=== PATIENT | female | born 1955 | race Caucasian/White ===

== ENCOUNTER 2022-02-04 07:39 | Outpatient (REF) | payer MEDICARE, SELFPAY ==
[2022-02-04 07:58] LABS: MANUAL DIFF FLAG NO
[2022-02-04 08:54] LABS: Basophils Percent Auto 0.6 % (0-2); Eosinophils Absolute Auto 0.2 X10*3/uL (0.0-0.4); Eosinophils Percent Auto 3.5 % (0-4); Hematocrit 45.8 % (37.0-47.0); Hemoglobin 14.9 g/dl (12.0-16.0); Imm Gran Abs Auto 0.02 X10*3/uL (0.00-0.03); Imm Gran Pct Auto 0.4 % (0.0-0.4); Lymphocytes Percent Auto 19.7 % (20-40); Mean Corpuscular HGB Conc 32.5 g/dl (31.0-35.0); Mean Corpuscular Hemoglobin 28.5 pg (27.0-33.0); Mean Corpuscular Volume 87.7 fL (80.0-98.0); Mean Platelet Volume 9.2 fL (9.4-12.3); Monocytes Absolute Auto 0.7 X10*3/uL (0.1-1.2); Monocytes Percent Auto 13.5 % (2-11); Neutrophils Absolute Auto 3.2 x10*3/uL (2.0-8.3); Neutrophils Percent Auto 62.3 % (45-73); Platelet Count 295 X10*3/uL (160-400); Red Blood Count 5.22 X10*6/uL (4.20-5.50); Red Cell Distribution Width 12.8 % (11.0-16.0); White Blood Count 5.2 X10*3/uL (4.8-10.8)
[2022-02-04 09:23] LABS: Alanine Aminotransferase 23 U/L (0-31); Albumin Level 4.2 g/dL (3.5-5.0); Alkaline Phosphatase 45 U/L (39-117); Anion Gap 15 (12-20); Aspartate Amino Transferase 30 U/L (5-31); Bilirubin Total 0.6 mg/dL (0.0-1.0); Blood Urea Nitrogen 22 mg/dL (9-16); Calcium 9.4 mg/dL (8.4-10.2); Carbon Dioxide 26 mmol/L (22-29); Chloride 103 mmol/L (96-108); Cholesterol 179 mg/dL; Estimated Glomerular Filt Rate > 60; Glucose Random 90 mg/dL (60-115); HDL Cholesterol 34 mg/dL; LDL Cholesterol Calculated 120 mg/dl; Potassium 4.2 mmol/L (3.3-5.1); Sodium 140 mmol/L (135-145); Total Protein 6.4 g/dL (6.5-8.0); Triglycerides 129 mg/dL
[2022-02-04 10:17] LABS: Free T4 (Free Thyroxine) 1.07 ng/dL (0.71-1.85); Thyroid Stimulating Hormone 2.27 uIU/mL (0.32-4.0); Vitamin D 25-OH Total 37.2 ng/mL (>30)
== END 2022-02-04 07:40 | disposition home or self-care (01) ==
LOC: HO.LAB 07:39
PROVIDERS: PCP Internal Medicine; Visit Provider Internal Medicine
DX: E03.9 Hypothyroidism, unspecified (principal); E78.00 Pure hypercholesterolemia, unspecified; M25.562 Pain in left knee
CPT/HCPCS: 36415; 80053; 80061; 82306; 84439; 84443; 85025

== ENCOUNTER → 2022-03-08 07:51 | Outpatient (REF) | payer MEDICARE, SELFPAY ==
--- NOTE | 2022-03-08 08:10 | CA_ITS ---
Acquisition Time: 2022-03-08 08:26:29 Total Exercise Time: 00:05:31 Test Indications: CP Medications: SEE CHART Protocol: SRINIVASAN Max HR: 153 BPM 100% of Pred: 152 BPM Max BP: 198/050 mmHG Max Work Load: 7.0 METS PT EXERCISED ON STD SRINIVASAN PROTOCOL FOR 530 INTO STAGE 2. MAX HR 153-100%MAX. NO C/O CP OR SOB. NO EKG CHANGES. NO ARRHYTHMIAS. CLINICALLY AND ELEC NEG. Referred By: Roberto Hughes Overread By: WAI HUGHES MD
== END ==
LOC: HO.CARD 07:51
PROVIDERS: PCP Internal Medicine; Visit Provider Internal Medicine
DX: R07.89 Other chest pain (principal); K21.9 Gastro-esophageal reflux disease without esophagitis
CPT/HCPCS: 93017

== ENCOUNTER 2022-06-28 16:12 | Outpatient (REF) | payer MEDICARE, SELFPAY ==
--- NOTE | ~2022-06-28 | XR_ITS ---
EXAMINATION: XR CHEST CLINICAL INFORMATION: Chest wall pain COMPARISON: None available. TECHNIQUE: 2 views of the chest were obtained. FINDINGS: No pneumothorax, pleural reaction, airspace opacity, or effusion. No hyperinflation. Heart size normal. The hilar and mediastinal contours are unremarkable. There are mild degenerative changes thoracic spine with gentle levocurvature lower thoracic region. XR/XR chest 2V IMPRESSION: -Lungs clear. No pneumothorax, infiltrate, or effusion.
[2022-06-28 16:36] LABS: MANUAL DIFF FLAG NO
[2022-06-28 17:07] LABS: Basophils Absolute Auto 0.1 X10*3/uL (0.0-0.2); Basophils Percent Auto 1.4 % (0-2); Eosinophils Absolute Auto 0.2 X10*3/uL (0.0-0.4); Hematocrit 45.8 % (37.0-47.0); Hemoglobin 14.9 g/dl (12.0-16.0); Imm Gran Abs Auto 0.02 X10*3/uL (0.00-0.03); Imm Gran Pct Auto 0.3 % (0.0-0.4); Mean Corpuscular HGB Conc 32.5 g/dl (31.0-35.0); Mean Corpuscular Hemoglobin 28.8 pg (27.0-33.0); Mean Corpuscular Volume 88.4 fL (80.0-98.0); Mean Platelet Volume 9.1 fL (9.4-12.3); Monocytes Absolute Auto 0.6 X10*3/uL (0.1-1.2); Monocytes Percent Auto 7.7 % (2-11); Neutrophils Absolute Auto 4.3 x10*3/uL (2.0-8.3); Neutrophils Percent Auto 59.6 % (45-73); Platelet Count 376 X10*3/uL (160-400); Red Blood Count 5.18 X10*6/uL (4.20-5.50); White Blood Count 7.3 X10*3/uL (4.8-10.8)
[2022-06-28 18:04] LABS: Erythrocyte Sedimentation Rate 2 MM/HR (0-20)
[2022-06-28 18:12] LABS: Alanine Aminotransferase 13 U/L (0-31); Albumin Level 4.5 g/dL (3.5-5.0); Alkaline Phosphatase 66 U/L (39-117); Anion Gap 14 (12-20); Aspartate Amino Transferase 14 U/L (5-31); Bilirubin Total 0.4 mg/dL (0.0-1.0); Blood Urea Nitrogen 18 mg/dL (9-16); C Reactive Protein < 0.10 mg/dL (< or = 0.50); Carbon Dioxide 28 mmol/L (22-29); Chloride 102 mmol/L (96-108); Estimated Glomerular Filt Rate > 60; Glucose Random 86 mg/dL (60-115); Rheumatoid Factor < 13.0 IU/mL (<15.0); Sodium 140 mmol/L (135-145); Total Protein 6.8 g/dL (6.5-8.0); Uric Acid 3.2 mg/dL (2.4-5.7)
[2022-07-01 10:03] LABS: Anti Nuclear Antibody Screen NEGATIVE (NEGATIVE)
== END 2022-06-28 16:13 | disposition home or self-care (01) ==
LOC: HO.LAB 16:12
PROVIDERS: PCP Internal Medicine; Visit Provider Internal Medicine
DX: R07.89 Other chest pain (principal)
CPT/HCPCS: 36415; 71046; 80053; 82550; 84550; 85025; 85652; 86038; 86140; 86431

== ENCOUNTER 2022-11-08 13:10 | Outpatient (AMB) | payer MEDICARE, SELFPAY ==
--- NOTE | 2022-11-08 13:14 | A.OFFVIS_ITS ---
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 She states over the last year or so she has been having a discomfort in the chest. This happens primarily at nighttime. She may have to get up and walk around a bit and try antacids extra and then she feels better. Thought to be initially acid reflux but she states she underwent endoscopy and there was no significant finding. She did a stress test in the being of the ER but that was also unremarkable. However, patient still gets these symptoms. There is no documented history of coronary artery disease, myocardial infarction or any other cardiac issues in the past. She has hypertension on medications. [facility] Medical History (Updated 11/08/22 @ 13:44 by Nakul Harris MD) Essential hypertension Surgical History (Updated 11/08/22 @ 13:20 by Daphne Montelongo) No pertinent past surgical history Family History (Updated 11/08/22 @ 13:39 by Nakul Harris MD) Mother ALS (amyotrophic lateral sclerosis) Father Stroke Social History (Updated 11/08/22 @ 13:21 by Daphne Montelongo) Alcohol intake: current Alcohol intake frequency: holidays/special occasions only Patient Tobacco Use Status: Never used Tobacco Review of Systems Const Denies chills, Denies daytime sleepiness, Denies fatigue, Denies fever(s), Denies frequent falls, Denies night sweats, Denies snoring, Denies weakness, Denies weight gain and Denies weight loss Eyes Denies loss of vision ENT Denies dizziness and Denies hearing loss Card Denies chest pain, Denies chest pain with activity, Denies syncope, Denies rapid heart rate, Denies edema, Denies claudication, Denies leg edema, Denies lightheadedness, Denies palpitations, Denies dyspnea, Denies dyspnea on exertion and Denies orthopnea Resp Denies cough, Denies excessive phlegm production, Denies dyspnea, Denies dyspnea on exertion, Denies snoring and Denies wheezing GI Denies abdominal pain, Denies hematochezia, Denies change in bowel habits, Denies change in stool character, Denies heartburn, Denies nausea and Denies vomiting Denies hematuria, Denies urinary frequency and Denies dysuria Musc Denies arthralgias, Denies muscle weakness, Denies numbness and Denies tingling Skin/Breast Denies nail changes and Denies rash Neuro Denies Abnormal speech present, Denies dizziness, Denies syncope, Denies frequent falls, Denies loss of vision, Denies memory loss, Denies numbness, Denies tingling and Denies weakness Psych Denies depression and Denies memory loss Endo Denies fatigue and Denies palpitations Aller/Immun Denies wheezing Physical Exam Vital Signs: Last Vital Signs Pulse 84 11/08/22 13:17 BP 150/82 H 11/08/22 13:17 BMI result Body Mass Index 27.2 Const General: comfortable and no acute distress Orientation/consciousness: patient oriented x3 HEENT Other: Unremarkable Head: Yes normal to inspection Neck Neck: Yes normal visual inspection Chest Chest palpation & inspection: normal inspection of the chest Resp Auscultation: clear to auscultation bilaterally Cardio Palpation: normal PMI Heart sounds: S1 normal heart sound present, S2 normal heart sound present, no gallops, Murmur heart sound present systolic I/ and at the right sternal border and no rubs GI Palpation (GI): Soft to palpation Back/Spine/Pelvis Other: unremarkable Skin General skin exam: no rashes or lesions noted Neuro General: patient oriented x3 Speech: No Abnormal speech present Extrem General: Yes normal to inspection Psych Mental Status: mental status grossly normal Office Procedures EKG Details: EKG with sinus rhythm at 84/Min; no significant ST-T changes and otherwise [place]remark[place] [id number], Complete Assessment & Plan Assessment & Plan (1) Precordial chest pain: Code(s): R07.2 - Precordial pain (2) Essential hypertension: Code(s): I10 - Essential (primary) hypertension Plan In the exercise stress test, she was able to do 7 Mets on Sean protocol and no clear ischemic changes or chest pains. Her symptoms are somewhat atypical as it is not exertional, but rather nighttime only. However, per patient EGD was also unremarkable. We will proceed further with coronary CTA for further evaluation. Echocardiogram for cardiac function/valvular assessment. Follow-up after the above. With regard to blood pressure, slightly on the higher side today. Need to just watch for now and possibly make some changes as necessary. Also this is the 1st appointment with us and there could be some anxiety as well. Orders: Orders CA echo transthoracic complete Today I25.10 - Atherosclerotic heart disease of [place] coronary artery without angina pectoris, R07.2 - Precordial pain CT Cardiac Coronary Angio Today I25.10 - Atherosclerotic heart disease of [place] coronary artery without angina pectoris, R07.2 - Precordial pain Basic Metabolic Panel Today R07.2 - Precordial pain Coding Level of Care Code New Pt Level 4 (17825) Diagnoses Precordial chest pain R07.2 Essential hypertension I10 CPT Codes EKG - CPT: 90511-[id number], Complete ([id number])
[2022-11-08 13:17] VITALS: BP 150/82; PULSE 84; BMI 27.2
== END 2022-11-08 13:44 | disposition home or self-care (01) ==
PROVIDERS: PCP Internal Medicine; Visit Provider Internal Medicine
DX: R07.2 Precordial pain (principal); I10 Essential (primary) hypertension
CPT/HCPCS: 93010; 99204

== ENCOUNTER → 2022-11-08 13:10 | Outpatient (BNVA) | payer MEDICARE, SELFPAY | PROVIDERS: PCP Internal Medicine; Visit Provider Internal Medicine | DX: R07.2 Precordial pain (principal); I10 Essential (primary) hypertension | CPT/HCPCS: 93005 ==

== ENCOUNTER → 2022-12-12 13:51 | Outpatient (REF) | payer MEDICARE, SELFPAY ==
--- NOTE | 2022-12-12 13:54 | CA_ITS ---
Transthoracic Echocardiogram Patient (Last, First, Middle): Nalini Ospina K Gender: Female Date of : 1955 Age: 66 Procedure Date: 12/12/2022 Procedure Type: Transthoracic Echocardiogram Location: OP Height: 162.56 cm Weight: 70.76 kg BSA: 1.76 m2 Heart Rate: bpm BP: 152 / 70 mmHg [employer]: GENOVEVA/KYLIE Referring MD: Nakul Harris MD Symptoms: I25.10 - Atherosclerotic heart disease of [place] coronary artery without... Study Quality: Adequate ECG Rhythm: Sinus Conclusions: - The left ventricular systolic function is normal. The calculated ejection fraction is 65% by biplane method. - No obvious valvular pathology seen on this study. Findings Left Ventricle Normal left ventricular cavity size. The left ventricular systolic function is normal. The calculated ejection fraction is 65% by biplane method. There is no evidence of regional wall motion abnormalities. Evidence suggests grade I (mild) diastolic dysfunction. There is mild septal asymmetric hypertrophy. LV peak GLS -17.5%. Right Ventricle Normal right ventricular cavity size and systolic function. Atria Both atria are normal in size. Aortic Valve There is mild calcification of the aortic valve. There is no aortic valve stenosis. There is trace (trivial) aortic valve regurgitation. Mitral Valve There is mild mitral annular calcification. There is no mitral valve regurgitation. There is no mitral valve stenosis. Pulmonic Valve There is trace pulmonic valve regurgitation. Tricuspid Valve Normal tricuspid valve structure. There is trace tricuspid valve regurgitation. There is no evidence of pulmonary hypertension. Great Vessels The asc aorta is normal in size. Venous The inferior vena cava is normal in size and collapses greater than 50% with inspiration. Pericardium/Pleural There is no evidence of pericardial effusion. Prior Study Comparison No prior study available for comparison. Recommendations, Care & Conclusions No obvious valvular pathology seen on this study. Measurements 2D Linear Measurements IVSd: 1.10 0.6-0.9/0.6-1.0 cm LVIDd: 4.15 3.9-5.3/4.2-5.9 cm LVIDd Index: 2.36 2.4-3.2/2.2-3.1 cm/m2 LVIDs: 2.27 2.0-3.6 cm LVPWd: 1.07 0.7-1.1 cm LA Diam: 3.80 2.7-3.8/3.0-4.0 cm LAIDs Index: 2.16 1.5-2.3 cm/m2 LV Mass: 188.20 67-162/88-224 g LV Mass Index: 106.93 43-95/49-115 g/m2 LVOT Diam: 2.10 3.0+(-)1.3 cm 2D Systolic Function EF 4C: 59.70 >55% EF 2C: 67.40 >55% EF BiP: 64.70 >55% Mitral Valve MV Pk E: 0.73 MV PK A: 1.00 MV Decel Time: 173.00 E/A: 0.70 E'Lateral: 8.59 E'Medial: 6.20 E/E' Med: 11.80 E/E' Lat: 8.50 PHT: 51.00 MVA PHT: 4.31 Decel Leon: 4.23 Aortic Valve AoV Pk Remberto: 1.33 AoV Mn Remberto: 0.97 AoV VTI: 0.31 AoV Pk Grad: 7.00 Aov Mn Grad: 4.00 ANGELLA Cont.VTI: 2.66 LVOT LVOT Pk Remberto: 1.13 LVOT Mn Remberto: 0.70 LVOT VTI: 0.24 LVOT Pk Grad: 5.00 LVOT Mn Grad: 2.00 LVOT Diam: 2.10 LVOT Area: 3.46 Diastolic Function MV Pk E: 0.73 MV Pk A: 1.00 E/A: 0.70 E'Medial: 6.20 E/E' Med: 11.80 E' Laterial: 8.59 E/E' Lat: 8.50 Right Ventricle TAPSE (mm): 27.40 TVS' Remberto: 13.20 Tricuspid Valve TR Pk Remberto: 1.97 TR Pk Grad: 16.00 RA Press: 3.00 RVSP: 19.00 Great Vessels Aorta Sinus of Valsalva: 3.24 2.0-3.[address] Ridge: 2.70 1.7-3.4 cm Ao Asc: 3.50 2.1-3.4 cm Ao Arch: 3.20 Updated in Other Vendor System with Status of Final Nakul Harris MD electronically signed on 12/13/2022 9:46:09 AM with status of Final
== END ==
LOC: HO.CARD 13:51
PROVIDERS: PCP Internal Medicine; Visit Provider Internal Medicine
DX: R07.2 Precordial pain (principal); I25.10 Atherosclerotic heart disease of native coronary artery without angina pectoris
CPT/HCPCS: 93306; 93356

== ENCOUNTER → 2022-12-12 13:54 | Outpatient (BNV) | payer MEDICARE, SELFPAY | PROVIDERS: PCP Internal Medicine; Visit Provider Internal Medicine | DX: I25.10 Atherosclerotic heart disease of native coronary artery without angina pectoris (principal) | CPT/HCPCS: 93306 ==

== ENCOUNTER 2022-12-27 15:19 | Outpatient (REF) | payer MEDICARE, SELFPAY ==
--- NOTE | ~2022-12-27 | XR_ITS ---
EXAMINATION: XR CHEST XR LEFT-SIDED RIBS CLINICAL INFORMATION: Fall with left-sided rib pain. COMPARISON: Chest radiograph 06/28/2022. TECHNIQUE: 2 views of the chest with 4 additional views of the left ribs. FINDINGS: No significant abnormality is seen involving the heart, lungs or mediastinum. Mild degenerative changes are present in the spine. No displaced rib fractures are seen. No bony destructive rib lesions. XR/XR chest 2V IMPRESSION: No acute intrathoracic disease. No acute displaced rib fractures are seen.
--- NOTE | ~2022-12-27 | XR_ITS ---
EXAMINATION: XR CHEST XR LEFT-SIDED RIBS CLINICAL INFORMATION: Fall with left-sided rib pain. COMPARISON: Chest radiograph 06/28/2022. TECHNIQUE: 2 views of the chest with 4 additional views of the left ribs. FINDINGS: No significant abnormality is seen involving the heart, lungs or mediastinum. Mild degenerative changes are present in the spine. No displaced rib fractures are seen. No bony destructive rib lesions. XR/XR ribs LT 2V IMPRESSION: No acute intrathoracic disease. No acute displaced rib fractures are seen.
== END 2022-12-27 15:20 | disposition home or self-care (01) ==
LOC: HO.XRAY 15:19
PROVIDERS: PCP Internal Medicine; Visit Provider Internal Medicine
DX: R07.81 Pleurodynia (principal); Z91.81 History of falling
CPT/HCPCS: 71046; 71100